=== PATIENT | female | born 1965 | race Native Hawaiian/Other Pacific Islander ===

== ENCOUNTER 2017-07-04 08:19 | Emergency (ER) | payer BC ==
[~2017-07-04] VITALS: Ht 165.1 cm; Wt 69.0 kg
[~2017-07-04 08:19] MED LIST: MACR100C PO; PYRI200T4 PO; ZOCO40TA PO
[2017-07-04 08:20] VITALS: BP 121/72; PULSE 77; RESP 18; TEMP 99.9; O2SAT 99
[2017-07-04] MEDS ORDERED: SIMV40TA PO (08:30)
--- NOTE | 2017-07-04 08:32 | PD ---
HPI Chief Complaint: Cold / Flu Symptoms Time Seen by Provider: 08:29 Travel History International Travel<30 days: No Contact w/Intl Traveler<30days: No Traveled to known affect area: No History of Present Illness HPI Patient comes in complaining of runny nose cough which is dry, body aches occasional nausea but no vomiting or diarrhea yet. Patient states she has had these symptoms for the past 4 days or so and not improving or getting any better. Patient states that she was around some folks that had been diagnosed with flu, but figured that since she had been around them for the past 3 days and did not seem to be sick that she was going to be okay. Shortly after the patient developed her symptoms so she is now about 7 days post exposure No known drug allergy Past medical and surgical history is significant for hypercholesterolemia D&C 2 , postmenopausal PFSH Past Medical History High Cholesterol: Yes Diminished Hearing: No Immunizations Current: No ?: Not LMP: Radha- : 2 Para: 0 Miscarriage: 2 : 0 Dilation and Curettage (D&C): Yes (X2) Social History Alcohol Use: No Tobacco Use: No Substance Use: No Allergies-Medications (Allergen,Severity, Reaction): Coded Allergies: No Known Allergies (Verified Adverse Reaction, Unknown, 07/04/17) Reported Meds & Prescriptions Reported Meds & Active Scripts Active Reported Simvastatin 40 Mg Tab 40 Mg PO HS Review of Systems General / Constitutional: No: Fever Eyes: No: Visual changes HENT: Positive: Rhinorrhea Cardiovascular: No: Chest Pain or Discomfort Respiratory: Positive: Cough Gastrointestinal: No: Abdominal Pain Genitourinary: No: Dysuria Musculoskeletal: Positive: Myalgias Skin: No Rash Neurologic: No: Weakness Psychiatric: No: Depression Endocrine: No: Polydipsia Hematologic/Lymphatic: No: Easy Bruising Physical Exam Narrative GENERAL: SKIN: Warm and dry. HEAD: Atraumatic. Normocephalic. EYES: Pupils equal and round. No scleral icterus. No injection or drainage. ENT: No nasal bleeding or discharge. Mucous membranes pink and moist. NECK: Trachea midline. No JVD. CARDIOVASCULAR: Regular rate and rhythm. RESPIRATORY: No accessory muscle use. Clear to auscultation. Breath sounds equal bilaterally. GASTROINTESTINAL: Abdomen soft, non-tender, nondistended. MUSCULOSKELETAL: Extremities without clubbing, cyanosis, or edema. No obvious deformities. NEUROLOGICAL: Awake and alert. No obvious cranial nerve deficits. Motor grossly within normal limits. Five out of 5 muscle strength in the arms and legs. Normal speech. PSYCHIATRIC: Appropriate mood and affect; insight and judgment normal. Data Data Last Documented VS Vital Signs Date Time Temp Pulse Resp B/P (MAP) Pulse Ox O2 Delivery O2 Flow Rate FiO2 07/04/17 08:20 99.9 77 18 121/72 (88) 99 MDM Medical Decision Making Medical Screen Exam Complete: Yes Emergency Medical Condition: Yes Medical Record Reviewed: Yes Differential Diagnosis Viral illness versus bacterial pharyngitis versus bronchitis versus flu Narrative Course Based on the patient's pulse exposure to someone who is flu positive, will treat the patient empirically on Tamiflu and will be given some symptomatic relief medication. Diagnosis Primary Impression: Influenza Patient Instructions: General Instructions, Influenza (DC) Scripts Benzonatate (Tessalon Perles) 100 Mg Cap 200 MG PO TID Y for COUGH, #12 CAP 0 Refills Prov: Gigi Rodriguez MD 07/04/17 Oseltamivir (Tamiflu) 75 Mg Cap 75 MG PO BID for Mgmt Viral Infection for 5 Days, #10 CAP 0 Refills Prov: Gigi Rodriguez MD 07/04/17 Disposition: 01 DISCHARGE HOME Condition: Stable Gigi Rodriguez MD Jul 04, 2017 08:32
[2017-07-04] MEDS ORDERED: OSEL75 PO (08:39)
[2017-07-04] MEDS ORDERED: BENZ100 PO (08:39)
== END 2017-07-04 08:54 | disposition home or self-care (01) ==
LOC: PHED 08:19
DX: J11.1 Influenza due to unidentified influenza virus with other respiratory manifestations (principal); E78.00 Pure hypercholesterolemia, unspecified
CPT/HCPCS: 99283

== ENCOUNTER 2017-07-09 16:50 | Emergency (ER) | payer BC ==
[~2017-07-09] VITALS: Ht 165.1 cm; Wt 65.0 kg
[~2017-07-09 16:50] MED LIST changes: +BENZ100 PO; -MACR100C PO; +OSEL75 PO; -PYRI200T4 PO; +SIMV40TA PO; -ZOCO40TA PO
[2017-07-09 17:00] VITALS: BP 119/62; PULSE 65; RESP 16; TEMP 98.6; O2SAT 100
[2017-07-09] MEDS ORDERED: SODIUM CHLOR 0.9% 1000 ML INJ 1,000 ML IV ONE (19:15)
[2017-07-09] MEDS ORDERED: KETOROLAC TROMETHAMINE 30 MG/ML (IVP) VIAL IV PUSH ONE (19:15)
--- NOTE | 2017-07-09 19:43 | RADRPT ---
EXAM DATE/TIME: 07/09/2017 19:24 [facility] COMPARISON: No previous studies available for comparison. INDICATIONS : Chest pain with cough. MEDICAL HISTORY : None. SURGICAL HISTORY : None. ENCOUNTER: Initial ACUITY: 1 week PAIN SCORE: 8/10 LOCATION: Bilateral chest. FINDINGS: PA and lateral views of the chest demonstrate the lungs to be symmetrically aerated without evidence of mass, infiltrate or effusion. The cardiomediastinal contours are unremarkable. Osseous structure s are intact. CONCLUSION: Normal examination. Black Leonard MD on July 09, 2017 at 19:41 Board Certified Radiologist. This report was verified electronically.
--- NOTE | 2017-07-09 19:43 | PD ---
HPI Chief Complaint: Cold / Flu Symptoms Time Seen by Provider: 19:06 Travel History International Travel<30 days: No Contact w/Intl Traveler<30days: No Traveled to known affect area: No History of Present Illness HPI Patient is a 51 year old female who comes in complaining of cough, cold and fatigue. She says she feels feverish at night and coughs a lot. She says it is preventing her from sleeping, which makes it hard for her to go to work. She was seen in [place] last week and discharged with prescriptions for Tamiflu and Tessalon Perles. She says this has not cured her. She is also concerned because she is having difficulty smelling and tasting. She denies any pains. She has not taken her temperature. She has not taken anything else for her symptoms. Severity is mild to moderate. PFSH Past Medical History High Cholesterol: Yes Diminished Hearing: No Immunizations Current: No ?: Not : 2 Para: 0 Miscarriage: 2 : 0 Dilation and Curettage (D&C): Yes (X2) Past Surgical History Surgical History: No Previous Surgery Social History Alcohol Use: No Tobacco Use: No Substance Use: No Allergies-Medications (Allergen,Severity, Reaction): Coded Allergies: No Known Allergies (Verified Adverse Reaction, Unknown, 07/09/17) Reported Meds & Prescriptions Reported Meds & Active Scripts Active Tessalon Perles (Benzonatate) 100 Mg Cap 200 Mg PO TID PRN Tamiflu (Oseltamivir Phosphate) 75 Mg Cap 75 Mg PO BID 5 Days Reported Simvastatin 40 Mg Tab 40 Mg PO HS Review of Systems Except as stated in HPI: all other systems reviewed are Neg General / Constitutional: Positive: Fever, Chills HENT: Positive: Congestion, No: Headaches, Lightheadedness Cardiovascular: No: Chest Pain or Discomfort Respiratory: Positive: Cough, No: Shortness of Breath Gastrointestinal: No: Nausea, Vomiting, Abdominal Pain Musculoskeletal: No: Myalgias, Edema Physical Exam Narrative GENERAL: Awake and alert, in no acute distress. SKIN: Focused skin assessment warm/dry. No wounds or signs of infection. HEAD: Atraumatic. Normocephalic. EYES: Pupils equal and round. No scleral icterus. ENT: Mucous membranes pink and moist. NECK: Trachea midline. No JVD. CARDIOVASCULAR: Regular rate and rhythm. No murmur appreciated. RESPIRATORY: No accessory muscle use. Clear to auscultation. Breath sounds equal bilaterally. GASTROINTESTINAL: Abdomen soft, non-tender, nondistended. MUSCULOSKELETAL: No obvious deformities. No clubbing. No cyanosis. No edema. NEUROLOGICAL: Awake and alert. No obvious cranial nerve deficits. Motor grossly within normal limits. Normal speech. PSYCHIATRIC: Appropriate mood and affect; insight and judgment normal. Data Data Last Documented VS Vital Signs Date Time Temp Pulse Resp B/P (MAP) Pulse Ox O2 Delivery O2 Flow Rate FiO2 07/09/17 19:50 55 16 118/65 (82) 99 Room Air 07/09/17 17:00 98.6 Orders Orders Iv Access Insert/Monitor (07/09/17 19:13) Complete Blood Count With Diff (07/09/17 19:13) Comprehensive Metabolic Panel (07/09/17 19:13) Chest, Pa & Lat (07/09/17 ) Sodium Chlor 0.9% 1000 Ml Inj (Ns 1000 M (07/09/17 19:15) Ketorolac Inj (Toradol Inj) (07/09/17 19:15) Labs Laboratory Tests Test 07/09/17 19:50 White Blood Count 7.8 TH/MM3 Red Blood Count 4.70 MIL/MM3 Hemoglobin 9.9 GM/DL Hematocrit 30.9 % Mean Corpuscular Volume 65.7 FL Mean Corpuscular Hemoglobin 21.1 PG Mean Corpuscular Hemoglobin Concent 32.1 % Red Cell Distribution Width 15.2 % Platelet Count 252 TH/MM3 Mean Platelet Volume 9.6 FL Neutrophils (%) (Auto) 47.8 % Lymphocytes (%) (Auto) 42.3 % Monocytes (%) (Auto) 7.4 % Eosinophils (%) (Auto) 1.8 % Basophils (%) (Auto) 0.7 % Neutrophils # (Auto) 3.7 TH/MM3 Lymphocytes # (Auto) 3.3 TH/MM3 Monocytes # (Auto) 0.6 TH/MM3 Eosinophils # (Auto) 0.1 TH/MM3 Basophils # (Auto) 0.1 TH/MM3 CBC Comment DIFF FINAL Differential Comment Blood Urea Nitrogen 16 MG/DL Creatinine 0.96 MG/DL Random Glucose 97 MG/DL Total Protein 7.4 GM/DL Albumin 3.5 GM/DL Calcium Level 8.2 MG/DL Alkaline Phosphatase 72 U/L Aspartate Amino Transf (AST/SGOT) 31 U/L Alanine Aminotransferase (ALT/SGPT) 31 U/L Total Bilirubin 0.3 MG/DL Sodium Level 139 MEQ/L Potassium Level 4.9 MEQ/L Chloride Level 106 MEQ/L Carbon Dioxide Level 24.2 MEQ/L Anion Gap 9 MEQ/L Estimat Glomerular Filtration Rate 61 ML/MIN MDM Medical Decision Making Medical Screen Exam Complete: Yes Emergency Medical Condition: Yes Medical Record Reviewed: Yes Differential Diagnosis viral illness vs pneumonia vs bronchitis Narrative Course Patient is a 51 year old female who comes in complaining of cough and fatigue. Exam shows no acute abnormalities. IV established, labs sent. Labs show no acute abnormalities. Given IVF and Toradol. CXR shows no acute abnormalities. Patient will be discharged with prescription for cough medicine. Advised to follow up with her doctor and return to the ED as needed for any worsening symptoms. Diagnosis Primary Impression: Cough Additional Impression: Viral illness Patient Instructions: Acute Cough (ED), General Instructions, Viral Syndrome ( ED) Additional Instructions: Take cough medicine as needed. Be careful as it may make you drowsy. Follow up with your doctor. Drink plenty of fluids. Return to the ED as needed for any worsening symptoms. Scripts Guaifenesin-Codeine Liq (Guaifenesin-Codeine Liq) 100-10 Mg/5 Ml Soln 10 ML PO Q6H Y for COUGH for 5 Days, #1 BOTTLE 0 Refills Prov: Celia Pisano MD 07/09/17 Disposition: 01 DISCHARGE HOME Condition: Stable Celia Pisano MD Jul 09, 2017 19:43
[2017-07-09 19:50] VITALS: BP 118/65; PULSE 55; RESP 16; O2SAT 99
[2017-07-09 20:20] LABS: AUTOMATED NEUTROPHIL # 3.7 TH/MM3 (1.8-7.7); BASOPHIL # 0.1 TH/MM3 (0-0.2); BASOPHIL % 0.7 % (0.0-2.0); EOSINOPHIL # 0.1 TH/MM3 (0-0.4); EOSINOPHIL % 1.8 % (0.0-4.0); HEMATOCRIT 30.9 % (35.0-46.0); HEMOGLOBIN 9.9 GM/DL (11.6-15.3); LYMPH % 42.3 % (9.0-44.0); LYMPHOCYTE # 3.3 TH/MM3 (1.0-4.8); MEAN CELL VOLUME 65.7 FL (80.0-100.0); MEAN CORPUSCULAR HEMOGLOBIN 21.1 PG (27.0-34.0); MEAN CORPUSCULAR HGB CONC 32.1 % (32.0-36.0); MEAN PLATELET VOLUME 9.6 FL (7.0-11.0); MONO % 7.4 % (0.0-8.0); MONOCYTE # 0.6 TH/MM3 (0-0.9); NEUT % 47.8 % (16.0-70.0); PLATELET COUNT 252 TH/MM3 (150-450); RED CELL DISTRIBUTION WIDTH 15.2 % (11.6-17.2); WHITE BLOOD COUNT 7.8 TH/MM3 (4.0-11.0)
[2017-07-09 20:39] LABS: ALT (GPT) 31 U/L (10-53)
[2017-07-09 20:41] LABS: ALKALINE PHOSPHATASE 72 U/L (45-117); TOTAL BILIRUBIN ADULT 0.3 MG/DL (0.2-1.0); TOTAL PROTEIN 7.4 GM/DL (6.4-8.2)
[2017-07-09 20:44] LABS: ALBUMIN 3.5 GM/DL (3.4-5.0); AST (GOT) 31 U/L (15-37); BICARBONATE 24.2 MEQ/L (21.0-32.0); BLOOD UREA NITROGEN 16 MG/DL (7-18); CALCIUM 8.2 MG/DL (8.5-10.1); CHLORIDE 106 MEQ/L (98-107); CREATININE 0.96 MG/DL (0.50-1.00); GLOMERULAR FILTRATION RATE 61 ML/MIN (>89); GLUCOSE,RANDOM 97 MG/DL (74-106); SODIUM (NA) 139 MEQ/L (136-145)
[2017-07-09] MEDS ORDERED: GUAI100S5 PO (20:58)
[2017-07-09 21:04] VITALS: BP 109/63
== END 2017-07-09 21:13 | disposition home or self-care (01) ==
LOC: NEPD 16:50
DX: B34.9 Viral infection, unspecified (principal); E78.00 Pure hypercholesterolemia, unspecified
CPT/HCPCS: 71046; 80053; 85025; 96374; 99284; J1885; J7030